=== PATIENT | male | born 1965 | race Caucasian/White ===

== ENCOUNTER → 2016-08-01 | Day surgery (SDC) | payer BC ==
[~2016-08-01] MED LIST: RANITIDINE HCL300 M1 PO; SYNTHROID 137137 MCG PO; TENORMIN 25 MG25 MG PO
== END | disposition home or self-care (01) ==
LOC: OR 08:54
PROVIDERS: Surgery
PROC: 0DJD8ZZ Inspection of Lower Intestinal Tract, Via Natural or Artificial Opening Endoscopic (ICD-10-PCS; principal; 2016-08-01 11:55)
DX: K64.1 Second degree hemorrhoids (principal); K64.0 First degree hemorrhoids; I10 Essential (primary) hypertension; K21.9 Gastro-esophageal reflux disease without esophagitis; M19.042 Primary osteoarthritis, left hand; M19.041 Primary osteoarthritis, right hand; F41.9 Anxiety disorder, unspecified; Z79.899 Other long term (current) drug therapy; Z80.3 Family history of malignant neoplasm of breast
CPT/HCPCS: J7120